=== PATIENT | male | born 1990 | race Caucasian/White ===

== ENCOUNTER 2018-07-09 11:14 | Emergency (ER) | payer OTHER ==
[~2018-07-09] VITALS: Ht 180.3 cm; Wt 88.0 kg
[2018-07-09 11:22] VITALS: BP 113/61
--- NOTE | 2018-07-09 11:31 | NUR ---
PAIN MEDIAL UPPER L LEG HX DVT SAME 4YRS AGO OFF COUMADIN GOOD DISTAL CMS NOTED L FOOT
[2018-07-09] MEDS ORDERED: DOLU50TA PO (11:55)
[2018-07-09] MEDS ORDERED: EMTR1TAB16 PO (11:55)
--- NOTE | 2018-07-09 13:37 | NUR ---
Patient/Caregiver given discharge instructions and they have confirmed that they understand the instructions. Patient ambulatory with steady gait.
== END 2018-07-09 13:38 | disposition home or self-care (01) ==
LOC: ED 13:13
DX: M79.652 Pain in left thigh (principal); M79.662 Pain in left lower leg; Z86.718 Personal history of other venous thrombosis and embolism
CPT/HCPCS: 99284